=== PATIENT | female | born 1990 | race Hispanic/Latino ===

== ENCOUNTER 2023-11-03 20:57 | Inpatient (IN) | payer OTHER ==
[~2023-11-03] VITALS: Ht 152.4 cm; Wt 61.2 kg
[2023-11-03] MEDS ORDERED: LACTATED RINGERS 500 ML 500 ML IV PRN ×2 (21:30)
[2023-11-03] MEDS ORDERED: EPHEDRINE SULFATE 50 MG/ML AMPULE IVP PRN ×2 (21:30)
[2023-11-03] MEDS ORDERED: PROMETHAZINE HCL 25 MG/ML 1ML AMPULE IM PRN ×2 (21:30)
[2023-11-03] MEDS ORDERED: MEPERIDINE-PF 50 MG/ML SYG IVP PRN ×2 (21:30)
[2023-11-03] MEDS ORDERED: LACTATED RINGERS 1000ML 1,000 ML IV PRN (21:30)
[2023-11-03] MEDS ORDERED: ROPIVACAINE 0.2% 2MG/ML 100ML VIAL EP SCH (21:30)
[2023-11-03] MEDS ORDERED: NALOXONE HCL 0.4 MG/1 ML ML IV PRN ×2 (21:30)
[2023-11-03] MEDS ORDERED: OXYTOCIN-LR 30 UNITS/500ML 500 ML IV SCH ×3 (21:30)
[2023-11-03] MEDS ORDERED: ROPIVACAINE 0.2% 100ML EP SCH (21:30)
[2023-11-03 21:46] VITALS: BP 115/72
[2023-11-03] MEDS: LACTATED RINGERS 1000ML 1,000 ML IV PRN (21:51)
[2023-11-03 22:01] LABS: HEMATOCRIT 36.4 % (36-48); MEAN CORPUSCULAR HEMOGLOBIN 31.2 pg (27.0-33.0); MEAN CORPUSCULAR HGB CONC 33.5 g/dL (32.0-36.0); MEAN CORPUSCULAR VOLUME 93.1 fL (79-99); RED BLOOD CELL COUNT(AUTO) 3.91 MIL/uL (4.00-5.50); RED CELL DISTRIBUTION WIDTH 14.8 % (11.0-15.5)
[2023-11-03] MEDS ORDERED: PNV1CAPS PO (22:02)
[2023-11-03 22:04] LABS: APPEARANCE,URINE CLEAR (CLEAR); BILIRUBIN,URINE NEGATIVE (NEGATIVE); COLOR,URINE LIGHT-YELLOW (YELLOW); GLUCOSE, URINE (UA) NEGATIVE (NEGATIVE); KETONES,URINE NEGATIVE (NEGATIVE); LEUKOCYTE ESTERASE ,URINE NEGATIVE Leu/uL (NEGATIVE); NITRATE,URINE NEGATIVE (NEGATIVE); OCCULT BLOOD,URINE NEGATIVE (NEGATIVE); PH,URINE 6.5 (5.0-8.0); PROTEIN,URINE NEGATIVE (NEGATIVE); UROBILINOGEN,URINE 0.2 mg/dL (0.2-1.0)
[2023-11-03 22:05] LABS: ADD UA MICROSCOPIC NO
[2023-11-03 23:43] LABS: HIV 1&2 ANTIBODY Non-Reactive (Negative); HIV-1 p24 Antigen Non-Reactive (Negative)
[2023-11-04] MEDS ORDERED: OXYTOCIN-LR 30 UNITS/500ML 500 ML IV SCH (04:00)
[2023-11-04] MEDS: LACTATED RINGERS 1000ML 1,000 ML IV PRN ×2 (04:35→10:00)
[2023-11-04 10:06] LABS: RAPID PLASMA REAGIN NONREACTIVE (NONREACTIVE)
[2023-11-04] MEDS ORDERED: LIDOCAINE HCL 1% 20 ML VIAL ONE (17:21)
[2023-11-04] MEDS ORDERED: METHYLERGONOVINE MALEATE 0.2 MG/1 ML ML ONE (17:57)
[2023-11-04] MEDS ORDERED: CEFAZOLIN SODIUM 2 GM VIAL ONE (20:32)
[2023-11-04] MEDS ORDERED: CALDOLOR 800MG+NS 250ML 250 ML IV ONE (20:32)
[2023-11-04] MEDS ORDERED: FENTANYL CITRATE PF 50 MCG/1 ML 2ML VIAL ONE ×2 (20:48→21:47)
[2023-11-04] MEDS ORDERED: LIDOCAINE 2%-EPI 1:200,000 20 ML VIAL IJ ONE (20:48)
[2023-11-04] MEDS ORDERED: CITRIC ACID/SODIUM CITRATE 30 ML UDCUP ONE (20:58)
[2023-11-04] MEDS ORDERED: CALDOLOR 800MG+NS 250ML 250 ML IV PRN (21:00)
[2023-11-04] MEDS ORDERED: CEFAZOLIN SODIUM 1 GM VIAL IVPB PRN (21:00)
[2023-11-04] MEDS ORDERED: LACTATED RINGERS 1000ML 1,000 ML IV SCH (21:00)
[2023-11-04] MEDS ORDERED: ONDANSETRON 4MG INJ ONE ×2 (21:12→21:42)
[2023-11-04] MEDS ORDERED: OXYTOCIN 10 USP UNITS/ML ONE (21:42)
[2023-11-04] MEDS ORDERED: OXYTOCIN 10 UNIT/1ML 10ML VIAL ONE (21:42)
[2023-11-04] MEDS ORDERED: MORPHINE PF 100MG/10ML AMP IV ONE (21:47)
[2023-11-04] MEDS ORDERED: MIDAZOLAM HCL 1 MG/ML 2ML VIAL ONE (21:51)
[2023-11-04] MEDS ORDERED: BUPIVACAINE/PF 0.25% 30ML VIAL IJ ONE (22:22)
[2023-11-05] MEDS ORDERED: MEPERIDINE-PF 75 MG/ML SYG IM PRN (01:30)
[2023-11-05] MEDS ORDERED: 0.9%NACL 10ML VIAL IVP PRN (01:30)
[2023-11-05] MEDS ORDERED: OXYTOCIN-LR 30 UNITS/500ML 500 ML IV PRN (01:30)
[2023-11-05] MEDS ORDERED: CALDOLOR 800MG+NS 250ML 250 ML IV ONE (05:18)
[2023-11-05] MEDS: CALDOLOR 800MG+NS 250ML 250 ML IV SCH ×2 (05:27→13:01)
[2023-11-05] MEDS: CEFAZOLIN SODIUM 1 GM VIAL IVPB SCH ×2 (05:27→08:47)
[2023-11-05 07:30] VITALS: BP 100/62; PULSE 93; RESP 18
[2023-11-05] MEDS ORDERED: DIPH,PERTUSS(ACELL),TET VAC/PF 0.5 ML VIAL IM ONE (09:00)
[2023-11-05] MEDS ORDERED: SIMETHICONE 80 MG TAB.CHEW PO SCH (09:00)
[2023-11-05] MEDS: DOCUSATE SODIUM 100 MG CAP PO SCH ×2 (09:07→20:50)
[2023-11-05] MEDS: ACETAMINOPHEN WITH CODEINE 1 TAB TAB PO PRN ×2 (09:08→23:40)
[2023-11-05 12:57] VITALS: BP 89/62; PULSE 74; RESP 18
[2023-11-05 16:08] VITALS: BP 97/62; PULSE 88; RESP 18
[2023-11-05 19:40] VITALS: BP 98/53; PULSE 89; RESP 20
[2023-11-05] MEDS: SIMETHICONE 80 MG TAB.CHEW PO PRN (20:50)
[2023-11-05 23:20] VITALS: BP 97/51; PULSE 88; RESP 20
[2023-11-06 03:49] VITALS: BP 99/55; PULSE 84; RESP 18
[2023-11-06 06:26] LABS: HEMATOCRIT 27.8 % (36-48); MEAN CORPUSCULAR HEMOGLOBIN 30.6 pg (27.0-33.0); MEAN CORPUSCULAR HGB CONC 34.2 g/dL (32.0-36.0); MEAN CORPUSCULAR VOLUME 89.7 fL (79-99); RED BLOOD CELL COUNT(AUTO) 3.1 MIL/uL (4.00-5.50); RED CELL DISTRIBUTION WIDTH 15.8 % (11.0-15.5); WHITE BLOOD COUNT (AUTO) 17.8 K/uL (4.8-10.8)
[2023-11-06 08:00] VITALS: BP 92/56; PULSE 95; RESP 18
[2023-11-06] MEDS: SIMETHICONE 80 MG TAB.CHEW PO PRN ×2 (08:25→13:19)
[2023-11-06] MEDS: DOCUSATE SODIUM 100 MG CAP PO SCH (08:25)
[2023-11-06] MEDS: ACETAMINOPHEN WITH CODEINE 1 TAB TAB PO PRN (08:26)
[2023-11-06] MEDS ORDERED: ACET-2079 PO (11:21)
[2023-11-06 11:58] VITALS: BP 87/52; PULSE 67; RESP 16
== END 2023-11-06 14:20 | disposition home or self-care (01) | DRG 788 ==
LOC: LDH 20:57 → WSH 11-05 07:30
PROVIDERS: ADMIT Obstetrics & Gynecology; ATTEND Obstetrics & Gynecology
PROC: 10D00Z1 Extraction of Products of Conception, Low, Open Approach (ICD-10-PCS; principal; 2023-11-04 21:00)
DX: O24.420 Gestational diabetes mellitus in childbirth, diet controlled (principal); O62.2 Other uterine inertia; Z3A.39 39 weeks gestation of pregnancy; Z37.0 Single live birth
CPT/HCPCS: 36415; 59510; 81003; 82947; 85027; 86592; 86701; 86850; 86900; 86901; 87340; 87390; 90715; A4314; A4344; G0378; J0690; J1741; J2175; J2210; J2250; J2274; J2405; J2550; J2590; J2795; J3010; J3490; J7120; A4248; J0665